=== PATIENT | female | born 1995 | race Caucasian/White ===

== ENCOUNTER 2021-11-01 19:29 | Emergency (ER) | payer BC, MEDICAID ==
[~2021-11-01] VITALS: Ht 160 cm; Wt 59.1 kg
[~2021-11-01 19:29] MED LIST: IBUP-1984 PO
[2021-11-01 20:06] LABS: URINE HCG POSITIVE (NEG)
[2021-11-01 20:07] LABS: BASOPHILS % (AUTO) 0.1 % (0-1); EOSINOPHILS % (AUTO) 0.2 % (0-6); HEMATOCRIT 39.5 % (35.0-45.0); LYMPHOCYTES # (AUTO) 0.3 X10'3 (1.1-4.8); LYMPHOCYTES % (AUTO) 2.3 % (21-51); MEAN CORPUSCULAR HEMOGLOBIN 27.7 PG (27.0-31.0); MEAN CORPUSCULAR HGB CONC 32.9 g/dL (33.0-36.5); MEAN CORPUSCULAR VOLUME 84.2 FL (78-98); MEAN PLATELET VOLUME 7.1 FL (7.4-10.4); MONOCYTES # (AUTO) 0.2 X10'3 (0-0.9); MONOCYTES % (AUTO) 1.3 % (2-12); NEUTROPHILS % (AUTO) 96.1 % (42-75); PLATELET COUNT 291 X10'3 (140-440); RED BLOOD COUNT 4.69 X10'6 (4.20-5.60); RED CELL DISTRIBUTION WIDTH 13.2 % (11.5-14.5); WHITE BLOOD COUNT 14.6 X10'3 (4.5-11.0)
[2021-11-01 20:08] LABS: CLARITY,URINE CLEAR (Clear); COLOR,URINE YELLOW (Yellow); GLUCOSE, URINE NEGATIVE (Neg); KETONES,URINE 15 mg/dl (Neg); LEUKOCYTE ESTERASE ,URINE NEGATIVE (Neg); NITRITES, URINE NEGATIVE (Neg); OCCULT BLOOD,URINE NEGATIVE (Neg); PH,URINE 5.5 (4.8-8.0); PROTEIN,URINE NEGATIVE (Neg); UROBILINOGEN,URINE 0.2 E.U/dL (0.2-1.0)
[2021-11-01 20:14] LABS: UA COLLECTION TYPE CLN CATCH MIDSTREAM
[2021-11-01 20:19] LABS: ALANINE AMINOTRANSFERASE 18 U/L (12-78); ALBUMIN 3.2 G/DL (3.4-5.0); ALBUMIN/GLOBULIN RATIO 0.8 (1.1-1.5); ALKALINE PHOSPHATASE 52 IU/L (46-116); ANION GAP 11 (8-16); ASPARTATE AMINO TRANSFERASE 15 U/L (10-37); BILIRUBIN,TOTAL 0.4 MG/DL (0.1-1.0); BLOOD UREA NITROGEN 13 MG/DL (7-18); BUN/CREATININE RATIO 17.8 (6.6-38.0); CALCIUM 8.3 MG/DL (8.5-10.1); CHLORIDE 104 MMOL/L (99-107); CREATININE 0.73 MG/DL (0.40-0.90); GLUCOSE 93 MG/DL (70-104); LIPASE 69 U/L (73-393); POTASSIUM 3.9 MMOL/L (3.5-5.1); SODIUM 137 MMOL/L (135-145); TOTAL CARBON DIOXIDE 22.2 MMOL/L (24-32); TOTAL PROTEIN 7.2 G/DL (6.4-8.2); eGFR > 90 ML/MIN
[2021-11-01] MEDS ORDERED: PYRIDOXINE HCL (VITAMIN B6) 250 MG TABLET PO SCH (20:30)
[2021-11-01] MEDS ORDERED: normal saline 1000ml 1,000 ML IV ONE (20:30)
[2021-11-01] MEDS ORDERED: ringers solution, lacted 1,000 ML IV ONE (20:35)
[2021-11-01] MEDS ORDERED: metoclopramide 5 mg/ml inj IV ONE (20:35)
[2021-11-01] MEDS ORDERED: diphenhydrAMINE 50 mg/ml inj IV ONE (20:35)
[2021-11-01 23:12] VITALS: BP 100/54
== END 2021-11-01 23:14 | disposition home or self-care (01) ==
LOC: ER 19:30
DX: A08.4 Viral intestinal infection, unspecified (principal); O21.9 Vomiting of pregnancy, unspecified; Z3A.11 11 weeks gestation of pregnancy
CPT/HCPCS: 80053; 81003; 81025; 83690; 85025; 96361; 96374; 96375; 99284; J1200; J2765; J7030; J7120; 99283